=== PATIENT | female | born 1960 | race Caucasian/White ===

== ENCOUNTER 2016-11-16 20:15 | Emergency (ER) | payer OTHER ==
[~2016-11-16] VITALS: Ht 160 cm; Wt 77.0 kg
[2016-11-16 20:19] VITALS: Ht 160 cm; Wt 77.0 kg
[2016-11-16] MEDS ORDERED: SOD CHLORIDE 0.9% 500 ML IV STA (21:37)
--- NOTE | 2016-11-16 22:00 | RADRPT ---
PROCEDURE: XR Chest. CLINICAL INDICATION: Chest pain. TECHNIQUE: Single frontal view of the chest. COMPARISON: None. FINDINGS: Mild cardiomegaly may be present. The lungs are clear. No signs of pleural fluid or pneumothorax ar e seen. The osseous structures and soft tissues are unremarkable. IMPRESSION: No evidence for active cardiopulmonary disease. RPTAT: [facility] Physician Caridad Date Time Electronically viewed and signed by Physician Caridad on 11/16/2016 22:00 RS/
[2016-11-16 22:03] LABS: ADD SCAN DIFF NO
[2016-11-16 22:07] LABS: ABNORMAL IP MESSAGE 1; BASOPHIL # 0.1 10^3/ul (0.0-0.1); BASOPHILS % 0.6 % (0.0-2.0); EOSINOPHILS # 0.3 10^3/ul (0.0-0.5); EOSINOPHILS % 2.9 % (0.0-7.0); HEMATOCRIT 29.9 % (37.0-47.0); HEMOGLOBIN 8.2 g/dl (12.0-16.0); LYMPHOCYTES # 3.6 10^3/ul (0.8-2.9); LYMPHOCYTES % 34.3 % (15.0-51.0); MEAN CORPUSCULAR HEMOGLOBIN 18.3 pg (29.0-33.0); MEAN CORPUSCULAR HGB CONC 27.4 g/dl (32.0-37.0); MEAN CORPUSCULAR VOLUME 66.9 fl (82.0-101.0); MEAN PLATELET VOLUME 9.2 fl (7.4-10.4); MONOCYTE # 0.8 10^3/ul (0.3-0.9); MONOCYTES % 7.1 % (0.0-11.0); NEUTROPHIL # 5.7 10^3/ul (1.6-7.5); NEUTROPHILS % 54.7 % (39.0-77.0); PLATELET COUNT 517 10^3/UL (140-415); RED BLOOD COUNT 4.47 10^6/ul (4.20-5.40); RED CELL DISTRIBUTION WIDTH 19.7 % (11.5-14.5); WHITE BLOOD COUNT 10.5 10^3/ul (4.8-10.8)
[2016-11-16] MEDS ORDERED: ATEN50TA PO (22:09)
[2016-11-16] MEDS ORDERED: METF1000 PO (22:09)
[2016-11-16] MEDS ORDERED: GLIP-95 PO (22:10)
[2016-11-16] MEDS ORDERED: ATOR20TA38 PO (22:10)
[2016-11-16] MEDS ORDERED: LANT3I SC (22:10)
[2016-11-16 22:27] LABS: ALANINE AMINOTRANSFERASE 27 IU/L (13-69); ALBUMIN 4.6 g/dl (3.3-4.9); ALBUMIN/GLOBULIN RATIO 1.53; ALKALINE PHOSPHATASE 75 IU/L (42-121); ANION GAP 20 (8-16); ASPARTATE AMINO TRANSFERASE 25 IU/L (15-46); BLOOD UREA NITROGEN 15 mg/dl (7-20); CALCIUM 9.8 mg/dl (8.4-10.2); CARBON DIOXIDE 25 mmol/L (21-31); CHLORIDE 99 mmol/L (97-110); CREATININE 0.65 mg/dl (0.44-1.00); GLUCOSE 167 mg/dl (70-220); INR 0.83; POTASSIUM 4.2 mmol/L (3.5-5.1); PROTIME 11.4 Sec (12.2-14.2); PT RATIO 0.9; SODIUM 140 mmol/L (135-144); TOTAL PROTEIN 7.6 g/dl (6.1-8.1)
[2016-11-16 22:28] LABS: PARTIAL THROMBOPLASTIN TIME 27.2 Sec (25.0-35.0)
[2016-11-16 22:40] LABS: B-TYPE NATRIURETIC PEPTIDE 79 PG/ML (0-125)
[2016-11-16 22:44] LABS: T3 UPTAKE 35.9 % (23.5-40.5)
[2016-11-16 22:55] LABS: TROPONIN-I < 0.012 ng/ml (0.00-0.12)
[2016-11-17] MEDS ORDERED: ACETAMINOPHEN 325 MG TAB PO ONE
--- NOTE | 2016-11-17 00:05 | ERD ---
ER Documentation Chief Complaint Date/Time DATE: 11/17/16 TIME: 00:04 Chief Complaint chest pain x 6 days, palpitation HPI This is a 55-year-old female comes in with chest pain for 6 days with palpitations. Pain is reproducible chest wall. Just the palpitations. Pain mild to moderate intensity. No shortness breath no diaphoresis. No dizziness. No other current complaints. Patient denies any nausea vomiting fevers or chills. Patient denies any other current issues. ROS All systems reviewed and are negative except as per history of present illness. 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) Anesthesia Reaction: No Hx Neurological Disorder: No Hx Respiratory Disorders: No Hx Cardiac Disorders: Yes (high cholesterol) Hx Psychiatric Problems: No Hx Miscellaneous Medical Probl: Yes (ANEMIA) Hx Alcohol Use: No Hx Substance Use: No Hx Tobacco Use: No Smoking Status: Never smoker Physical Exam Vitals Vital Signs Date Time Temp Pulse Resp B/P Pulse Ox O2 Delivery O2 Flow Rate FiO2 11/16/16 23:44 89 16 121/65 100 Nasal Cannula 2.0 11/16/16 22:02 Nasal Cannula 2 11/16/16 20:19 98.3 89 20 114/72 98 Physical Exam Const: [] Head: Atraumatic Eyes: Normal Conjunctiva ENT: Normal External Ears, Nose and Mouth. Neck: Full range of motion..~ No meningismus. Resp: Clear to auscultation bilaterally Cardio: Regular rate and rhythm, no murmurs Abd: Soft, non tender, non distended. Normal bowel sounds Skin: No petechiae or rashes Back: No midline or flank tenderness Ext: No cyanosis, or edema Neur: Awake and alert Psych: Normal Mood and Affect Result Diagram: 11/16/16214911/16/162149 Results 24 hrs Laboratory Tests Test 11/16/16 21:50 White Blood Count 10.510^3/ul Red Blood Count 4.4710^6/ul Hemoglobin 8.2g/dl Hematocrit 29.9% Mean Corpuscular Volume 66.9fl Mean Corpuscular Hemoglobin 18.3pg Mean Corpuscular Hemoglobin Concent 27.4g/dl Red Cell Distribution Width 19.7% Platelet Count 07655^3/UL Mean Platelet Volume 9.2fl Neutrophils % 54.7% Lymphocytes % 34.3% Monocytes % 7.1% Eosinophils % 2.9% Basophils % 0.6% Nucleated Red Blood Cells % 0.0/100WBC Neutrophils # 5.710^3/ul Lymphocytes # 3.610^3/ul Monocytes # 0.810^3/ul Eosinophils # 0.310^3/ul Basophils # 0.110^3/ul Nucleated Red Blood Cells # 0.010^3/ul Prothrombin Time 11.4Sec Prothrombin Time Ratio 0.9 INR International Normalized Ratio 0.83 Activated Partial Thromboplast Time 27.2Sec Sodium Level 140mmol/L Potassium Level 4.2mmol/L Chloride Level 99mmol/L Carbon Dioxide Level 25mmol/L Anion Gap 20 Blood Urea Nitrogen 15mg/dl Creatinine 0.65mg/dl Glucose Level 167mg/dl Calcium Level 9.8mg/dl Total Bilirubin 0.0mg/dl Direct Bilirubin 0.00mg/dl Indirect Bilirubin 0.0mg/dl Aspartate Amino Transf (AST/SGOT) 25IU/L Alanine Aminotransferase (ALT/SGPT) 27IU/L Alkaline Phosphatase 75IU/L Troponin I < 0.012ng/ml B-Type Natriuretic Peptide 79PG/ML Total Protein 7.6g/dl Albumin 4.6g/dl Globulin 3.00g/dl Albumin/Globulin Ratio 1.53 Thyroid Stimulating Hormone (TSH) 3.470MIU/L Free Thyroxine Index 2.15ug/ml Thyroxine (T4) 6.0ug/dl Triiodothyronine (T3) Uptake 35.9% Current Medications Medications (Trade) Dose Ordered Sig/Des Route PRN Reason Start Time Stop Time Status Last Admin Dose Admin Sodium Chloride (NS) 500 ml @ 500 mls/hr Q1H STAT IV 11/16/16 21:37 11/16/16 22:36 DC 11/16/16 21:55 Acetaminophen (Tylenol Tab) 650 mg ONCE ONCE PO 11/17/16 00:00 11/17/16 00:01 DC 11/17/16 00:00 Procedures/MDM EKG: Rate/Rhythm: Normal Sinus Rhythm QRS, ST, T-waves: No changes consistent w/ acute ischemia Impression: No evidence of ischemia or arrhythmia Chest X-ray 1V Interpreted by me: Soft Tissue: No acute abnormalities Bones: No acute abnormalities Mediastinum/Cardiac Silhouette/Lungs: No acute abnormalities Patient's thoracic symptoms have stabilized while in the department and are stable for outpatient follow up. Exam and work up not consistent w/ ischemia, arrhythmia, PE or dissection. Discussed with . Will arrange outpatient cardiology follow-up. Patient has no risk factors. Pain is reproducible. Departure Diagnosis: Primary Impression: Chest pain Chest pain type: unspecified Qualified Code: R07.9 - Chest pain, unspecified type Additional Impression: Chronic anemia Condition: Stable DARIUS SPARKS Nov 17, 2016 00:05
[2016-11-17] MEDS ORDERED: FER325 PO (00:06)
[2016-11-17 00:47] VITALS: BP 124/66; PULSE 90; RESP 20; TEMP 98.2
--- NOTE | 2016-11-18 15:42 | RADRPT ---
Vent Rate: 83 bpm RR Interval: 0 msec RI Interval: 138 msec QRS Duration: 84 msec QT Interval: 370 msec QTC Interval: 434 msec P-R-T [place]: 37 - 49 - 57 degrees Normal sinus rhythm Normal ECG Electronically Signed By: Fernando Lowry [id number]
== END 2016-11-17 00:59 | disposition home or self-care (01) ==
LOC: E/R 20:15
DX: R07.9 Chest pain, unspecified (principal); D64.9 Anemia, unspecified; Z79.4 Long term (current) use of insulin
CPT/HCPCS: 36415; 71010; 80053; 83880; 84436; 84443; 84479; 84484; 85025; 85610; 85730; 93005; 99285; J7040